=== PATIENT | female | born 1990 | race Caucasian/White ===

== ENCOUNTER 2022-01-20 08:28 | Emergency (ER) | payer BC, SELFPAY ==
[2022-01-20 08:29] VITALS: BP 142/94; PULSE 91; RESP 15; TEMP 36.6; O2SAT 100
--- NOTE | 2022-01-20 08:51 | ED.LOWEXIN ---
HPI - Extremity Injury (Lower) General Chief Complaint: Extremity Injury, Lower Stated Complaint: left sciatic nerve pain Time Seen by Provider: 01/20/22 08:51 Source: patient Mode of arrival: ambulatory Limitations: no limitations History of Present Illness HPI Narrative: Patient is a 31-year-old female presenting to the emergency department for evaluation of left lower back pain. Patient reports history of sciatic pain in the past states that this feels similar. 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 Patient reports that she has had significant worsening left lower back pain which radiates down to her left buttock and left lower extremity. Patient reports aching, shooting pain. Patient denies any weakness. No bowel or bladder difficulty. No bowel or bladder incontinence. Patient without fall, injury, trauma. Patient without her, chills. No history of IV drug use. Patient has taken ibuprofen without much improvement in her symptoms. Related Data Allergies Allergy/AdvReac Type Severity Reaction Status Date / Time codeine Allergy Nausea and Verified 01/20/22 08:58 Vomiting Review of Systems Review of Systems: CONSTITUTIONAL: Denies fever, chills, or sweats. ENT: Denies rhinorrhea, congestion, sore throat, or otalgia. CARDIOVASCULAR: Denies chest pain, palpitations, or edema. RESPIRATORY: Denies cough or dyspnea. GASTROINTESTINAL: Denies abdominal pain, nausea, vomiting, or diarrhea. GENITOURINARY: Denies dysuria or hematuria. SKIN: Denies rash or itching. MUSCULOSKELETAL: Reports left lower back pain without other joint pain, or myalgia. NEUROLOGIC: Denies headache, numbness, or weakness. [facility] Social History Social History (Updated 01/20/22 @ 09:38 by Crystal Lucas MD) Smoking status: Never smoker Alcohol intake: never Substance use: never Exam Narrative: GENERAL: Awake, alert, conversant HEAD: Normocephalic, atraumatic. EYES: PERRLA and EOMI. ENT: Nares clear, no rhinorrhea or epistaxis. Mucous membranes moist. NECK: Supple. CHEST: No respiratory distress, breathing even and non labored HEART: Regular rate, sinus rhythm ABDOMEN:Non distended, non tender Thorax: No midline thoracic or lumbar tenderness. No significant lumbar paraspinal tenderness. There is positive left SI joint tenderness that reproduces pain. EXTREMITIES: Normal range of motion. No edema. SKIN: Warm, dry, no rash. NEURO:No focal deficits. Alert and oriented x3. EOMs intact without nystagmus. Strength 5/5 bilateral upper extremities. Strength 5/5 bilateral lower extremities. Reflexes 2+ patellar. Intact EHL/FHL bilaterally. Intact distal sensation. Patient is ambulatory although does report pain with left straight leg raise. Course Vital Signs Vital signs: Vital Signs Temperature 36.6 C 01/20/22 08:29 Pulse Rate 91 01/20/22 08:29 Respiratory Rate 15 01/20/22 08:29 Blood Pressure 142/94 H 01/20/22 08:29 Pulse Oximetry 100 01/20/22 08:29 Oxygen Delivery Room Air 01/20/22 08:29 Temperature 36.6 C 01/20/22 08:29 Pulse Rate 91 01/20/22 08:29 Respiratory Rate 15 01/20/22 08:29 Blood Pressure 142/94 H 01/20/22 08:29 Pulse Oximetry 100 01/20/22 08:29 Oxygen Delivery Room Air 01/20/22 08:29 MDM - Extremity Injury (Lower) MDM Narrative Medical decision making narrative: Given History and Exam the patient appears to be at low risk for Spinal Cord Compression Syndrome, Vertebral Malignancy/Mets, acute Spinal Fracture, Vertebral Osteomyelitis, Epidural Abscess, Infected or Obstructing Kidney Stone. Patient is ambulatory with normal strength. Their presentation appears most likely to be secondary to non-emergent musculoskeletal etiology vs non-emergent disc herniation. Pain is reproducible, and patient has no other high risk factors such as history of malignancy, weight loss, infectious symptoms. ED Workup: Labwork for outpatient follow up at
[2022-01-20] MEDS: ACETAMINOPHEN 500 MG TABLET 1000 MG PO (09:34)
[2022-01-20] MEDS: KETOROLAC 30 MG/ML VIAL (*BKC) IM (09:35)
[2022-01-20] MEDS: LIDOCAINE 5% PATCH 1 PATCH TRANSDERM (09:39)
[2022-01-20] MEDS: diazePAM (*CRX) 5 MG TABLET PO (09:42)
[2022-01-20 10:31] VITALS: BP 157/89; PULSE 75; RESP 18; O2SAT 99
== END 2022-01-20 10:33 | disposition home or self-care (01) ==
PROVIDERS: Emergency Provider Emergency Medicine; PCP Internal Medicine Infectious Disease
DX: M54.42 Lumbago with sciatica, left side (principal)
CPT/HCPCS: 96372; 99283; A9270; J1100; J1885